=== PATIENT | female | born 2000 | race Caucasian/White ===

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

== ENCOUNTER 2023-07-09 12:02 | Inpatient (IN) | payer OTHER ==
[~2023-07-09] VITALS: Ht 160 cm; Wt 45.4 kg
[~2023-07-09 12:02] MED LIST: ALBUTEROL2.5 MG/3 M IH; OSEL75CA PO; TUSICOF CAPLET1 EACH PO; VENTOLIN HFA18 GM
[2023-07-09] MEDS ORDERED: FLUTICASONE-SA1 EAC5 (12:15)
[2023-07-09] MEDS ORDERED: ALBUTEROL1.25 MG/3 IH (12:15)
[2023-07-09 16:08] LABS: HEMATOCRIT 42.4 % (36.0-45.00); HEMOGLOBIN 14.4 g/dL (12.0-15.00); MEAN CELL VOLUME 89.8 fL (80.00-100.00); MEAN CORPUSCULAR HEMOGLOBIN 30.5 pg (27.00-32.0); PLATELET COUNT 326 K/uL (150-450); RED BLOOD COUNT 4.72 M/uL (4.00-6.00); RED CELL DISTRIBUTION WIDTH 12.3 % (11.5-14.5)
[2023-07-09 16:12] LABS: URINE APPEARANCE Cloudy; URINE BILIRRUBIN Negative (NEGATIVE); URINE BLOOD Trace; URINE COLOR Dark Yellow; URINE GLUCOSE Negative (NEGATIVE); URINE LEUKOCYTE Trace; URINE NITRATE Negative
[2023-07-09 16:13] LABS: URINE BACTERIA 944.9 uL (0.0-1933); URINE EPITHELIAL CELLS 21.1 uL (0.0-38.8); URINE RBC 123.3 uL (0.0-20.8); URINE WBC 21.3 uL (0.0-23.2)
[2023-07-09 16:18] LABS: ALBUMIN 3.3 gm/dL (3.4-5.0); BILIRUBIN TOTAL 1.45 mg/dL (0.3-1.2); CALCIUM 9.2 mg/dL (8.5-10.1); CREATININE SERUM 1.03 mg/dL (0.55-1.02); GFR 66.4; GLOBULINA 5.6 G/DL (2.4-3.5); POTASSIUM 3.83 mEq/L (3.5-5.1); TOTAL PROTEIN 8.9 gm/dL (6.4-8.2)
[2023-07-09 16:29] LABS: URINE PROTEIN 100 (NEGATIVE)
[2023-07-09 18:49] LABS: HEMATOCRIT 38.3 % (36.0-45.00); HEMOGLOBIN 12.9 g/dL (12.0-15.00); MEAN CELL VOLUME 90.6 fL (80.00-100.00); MEAN CORPUSCULAR HEMOGLOBIN 30.4 pg (27.00-32.0); MEAN CORPUSCULAR HGB CONC 33.6 g/dl (32.0-36.0); PLATELET COUNT 290 K/uL (150-450); RED BLOOD COUNT 4.23 M/uL (4.00-6.00); RED CELL DISTRIBUTION WIDTH 12.1 % (11.5-14.5)
[2023-07-10 02:50] LABS: ABG PH 7.422 (7.35-7.45); ABG PO2 90.2 mmHg (80-100); ABG pCO2 31.5 mmHg (35-45); BASE EXCESS -3.2 mmol/l; BICARBONATE 20.1 mmol/l (23-25)
[2023-07-10 02:51] LABS: allen test SATISFACTORY; o2 21 %; puncture site RADIAL RIGHT
[2023-07-10 04:42] LABS: INR 1.11; PARTIAL THROMBOPLASTIN TIME 27.8 SECONDS (22.0-34.0); PROTHROMBIN TIME 11.6 SECONDS (9.0-11.5)
[2023-07-11 08:39] LABS: MYCOPLASMA PNEUMONIAE IGM NON REACTIVE (NO REACTIVE)
[2023-07-12 06:18] LABS: HEMATOCRIT 34.5 % (36.0-45.00); HEMOGLOBIN 11.9 g/dL (12.0-15.00); MEAN CELL VOLUME 89.6 fL (80.00-100.00); MEAN CORPUSCULAR HEMOGLOBIN 30.9 pg (27.00-32.0); MEAN CORPUSCULAR HGB CONC 34.4 g/dl (32.0-36.0); PLATELET COUNT 227 K/uL (150-450); RED BLOOD COUNT 3.85 M/uL (4.00-6.00); RED CELL DISTRIBUTION WIDTH 12.4 % (11.5-14.5)
== END 2023-07-13 13:47 | disposition home or self-care (01) | DRG 194 ==
LOC: ER 12:02 → SEC-K 23:42 → SURG 23:42
PROVIDERS: General Practice; Internal Medicine; Internal Medicine Infectious Disease; Nurse Practitioner Family; ADMIT Internal Medicine; ATTEND Internal Medicine
PROC: BW21YZZ Computerized Tomography (CT Scan) of Abdomen and Pelvis using Other Contrast (ICD-10-PCS; principal; 2023-07-09)
DX: J18.9 Pneumonia, unspecified organism (principal); N39.0 Urinary tract infection, site not specified; J45.909 Unspecified asthma, uncomplicated

== ENCOUNTER 2023-08-21 15:31 | Outpatient (CLI) | payer OTHER ==
[~2023-08-21 15:31] MED LIST changes: +ALBUTEROL1.25 MG/3 IH; +FLUTICASONE-SA1 EAC5
== END 2023-08-21 15:39 | disposition home or self-care (01) ==
LOC: RAD 15:31
PROVIDERS: ATTEND Internal Medicine Pulmonary Disease
DX: R06.02 Shortness of breath (principal); J45.40 Moderate persistent asthma, uncomplicated; J16.8 Pneumonia due to other specified infectious organisms

== ENCOUNTER 2023-11-16 10:21 | Outpatient (CLI) | payer OTHER | END 2023-11-16 10:34 | disposition home or self-care (01) | LOC: TOM 10:21 | PROVIDERS: ATTEND Internal Medicine Pulmonary Disease | DX: R06.02 Shortness of breath (principal); J45.50 Severe persistent asthma, uncomplicated; J16.8 Pneumonia due to other specified infectious organisms ==